=== PATIENT | female | born 1955 | race Caucasian/White ===

== ENCOUNTER 2022-12-24 17:34 | Emergency (ER) | payer MEDICARE, BC ==
[~2022-12-24] VITALS: Ht 172.7 cm; Wt 57.7 kg
[2022-12-24 18:46] VITALS: BP 149/97
[2022-12-24] MEDS ORDERED: normal saline 1000ML IV soln IVB ONE (19:10)
[2022-12-24 19:15] LABS: BASOPHILS % (AUTO) 0.3 % (0-1); EOSINOPHILS % (AUTO) 0.1 % (0-6); HEMATOCRIT 41.1 % (35.0-45.0); HEMOGLOBIN 13.7 g/dl (12.0-16.0); LYMPHOCYTES # (AUTO) 0.7 X10'3 (1.1-4.8); LYMPHOCYTES % (AUTO) 9.3 % (21-51); MEAN CORPUSCULAR HEMOGLOBIN 31.4 PG (27.0-31.0); MEAN CORPUSCULAR HGB CONC 33.3 g/dL (33.0-36.5); MEAN CORPUSCULAR VOLUME 94.3 FL (78-98); MEAN PLATELET VOLUME 7.9 FL (7.4-10.4); MONOCYTES # (AUTO) 0.3 X10'3 (0-0.9); MONOCYTES % (AUTO) 4.3 % (2-12); NEUTROPHILS # (AUTO) 6.2 X10'3 (1.8-7.7); PLATELET COUNT 229 X10'3 (140-440); RED BLOOD COUNT 4.36 X10'6 (4.20-5.60); RED CELL DISTRIBUTION WIDTH 13.9 % (11.5-14.5); WHITE BLOOD COUNT 7.2 X10'3 (4.5-11.0)
[2022-12-24] MEDS ORDERED: metoclopramide 5 mg/ml inj IV ONE (19:20)
[2022-12-24] MEDS ORDERED: diphenhydrAMINE 50 mg/ml inj IV ONE (19:20)
[2022-12-24 19:27] LABS: ALANINE AMINOTRANSFERASE 47 U/L (12-78); ALBUMIN 3.1 G/DL (3.4-5.0); ALKALINE PHOSPHATASE 114 IU/L (46-116); ANION GAP 11 (8-16); ASPARTATE AMINO TRANSFERASE 23 U/L (10-37); BILIRUBIN,TOTAL 0.2 MG/DL (0.1-1.0); BLOOD UREA NITROGEN 21 MG/DL (7-18); BUN/CREATININE RATIO 29.6 (10.0-20.0); CALCIUM 8.3 MG/DL (8.5-10.1); CHLORIDE 108 MMOL/L (99-107); CREATININE 0.71 MG/DL (0.40-0.90); GLUCOSE 110 MG/DL (70-104); POTASSIUM 3.8 MMOL/L (3.5-5.1); SODIUM 144 MMOL/L (135-145); TOTAL CARBON DIOXIDE 25.3 MMOL/L (24-32); TOTAL PROTEIN 6.3 G/DL (6.4-8.2); eGFR 82 ML/MIN
--- NOTE | 2022-12-24 20:15 | NUR ---
iv dc'd pt being discharged dressing applied
== END 2022-12-24 20:17 | disposition home or self-care (01) ==
LOC: ER 17:36
DX: R00.2 Palpitations (principal); E86.0 Dehydration
CPT/HCPCS: 36415; 80053; 83880; 84484; 85025; 93005; 99284; J7030

== ENCOUNTER 2023-10-18 08:06 | Observation (INO) | payer MEDICARE, BC ==
[2023-10-12 10:41] LABS: BASOPHILS % (AUTO) 0.7 % (0-1); LYMPHOCYTES # (AUTO) 1.1 X10'3 (1.1-4.8); LYMPHOCYTES % (AUTO) 25.2 % (21-51); MEAN CORPUSCULAR HEMOGLOBIN 31.7 PG (27.0-31.0); MEAN CORPUSCULAR HGB CONC 33.2 g/dL (33.0-36.5); MEAN CORPUSCULAR VOLUME 95.5 FL (78-98); MEAN PLATELET VOLUME 9.4 FL (7.4-10.4); MONOCYTES # (AUTO) 0.4 X10'3 (0-0.9); NEUTROPHILS # (AUTO) 2.9 X10'3 (1.8-7.7); NEUTROPHILS % (AUTO) 64.1 % (42-75); PRE OP HEMATOCRIT 46.9 % (35.0-45.0); PRE OP HEMOGLOBIN 15.6 g/dL (12.0-16.0); PRE OP PLATELET COUNT 177 X10'3 (140-440); PRE OP WHITE BLOOD COUNT 4.5 10'3 (4.8-10.8); RED BLOOD COUNT 4.92 X10'6 (4.20-5.60); RED CELL DISTRIBUTION WIDTH 13.7 % (11.5-14.5)
[2023-10-12 10:52] LABS: PRE OP INR 0.9 INR; PRE OP PROTIME 10.2 SECONDS (9.0-12.0)
[2023-10-12 11:24] LABS: ALBUMIN 4.2 G/DL (3.4-5.0); ALBUMIN/GLOBULIN RATIO 1.2 (1.1-1.5); ALKALINE PHOSPHATASE 69 IU/L (46-116); BLOOD UREA NITROGEN 16 MG/DL (7-18); BUN/CREATININE RATIO 16.7 (10.0-20.0); CALCIUM 9.5 MG/DL (8.5-10.1); CHLORIDE 106 MMOL/L (99-107); CREATININE 0.96 MG/DL (0.40-0.90); PRE OP ALT 41 U/L (30-65); PRE OP ANION GAP 8 (8-16); PRE OP AST 26 U/L (10-37); PRE OP BILIRUB, TOTAL 0.5 MG/DL (0.0-1.0); PRE OP GLUCOSE 91 MG/DL (70-104); PRE OP POTASSIUM 4.2 MMOL/L (3.4-5.1); PRE OP SODIUM 145 MMOL/L (135-145); TOTAL CARBON DIOXIDE 30.6 MMOL/L (24-32); TOTAL PROTEIN 7.7 G/DL (6.4-8.2); eGFR 58 ML/MIN
[~2023-10-18] VITALS: Ht 170.2 cm; Wt 57.2 kg
[2023-10-18] VITALS (31 sets, daily range): BP systolic 87–129; BP diastolic 47–61; PULSE 58–106; RESP 10–18; TEMP 97.2–98.2; O2SAT 94–100
[2023-10-18] MEDS: cefazolin 2gm/D5W 100mL 100 ML IV ONE (05:30)
[2023-10-18] MEDS: ringers solution, lacted 1,000 ML IV SCH ×3 (05:30→12:30)
[2023-10-18] MEDS: famotidine 20mg tablet PO ONE (05:30)
[2023-10-18] MEDS ORDERED: BUPIVAcaine/PF 2.5 mg/ml (0.25%) 30ml vial ONE (09:49)
[2023-10-18] MEDS ORDERED: BUPIVACAINE liposomal/PF 13.3 MG/ML vial IM ONE (09:49)
[2023-10-18] MEDS ORDERED: PHENYLephrine 10mg/ml 5ml injection IV ONE (09:51)
[2023-10-18] MEDS ORDERED: ePHEDrine 50MG/ML INJ. ONE (09:51)
[2023-10-18] MEDS ORDERED: sevoflurane 250ml liquid IH ONE (09:51)
[2023-10-18] MEDS ORDERED: fentaNYL/PF 50MCG/1 ML 2ML syringe ONE (09:58)
[2023-10-18] MEDS ORDERED: midazolam 1 mg/ML 2ml injection ONE (09:58)
[2023-10-18] MEDS ORDERED: LIDOcaine 2% (20mg/ml) 5ml vial ONE (10:04)
[2023-10-18] MEDS ORDERED: ondansetron/PF 4mg/2ml inj ONE (10:04)
[2023-10-18] MEDS ORDERED: propofol inj 20 ML IV ONE (10:04)
[2023-10-18] MEDS ORDERED: acetaminophen 1,000mg/100ml IV 100 ML IV ONE (10:04)
[2023-10-18] MEDS ORDERED: labetalol 20mg/4ml (5mg/ml) syringe IV PRN (10:45)
[2023-10-18] MEDS ORDERED: morphine 4 MG/ML inj SYRINge IV PRN (10:45)
[2023-10-18] MEDS ORDERED: hydrALAZINE 20mg/ml inj. IV PRN (10:45)
[2023-10-18] MEDS ORDERED: ondansetron/PF 4mg/2ml inj IV PRN ×2 (10:45→12:30)
[2023-10-18] MEDS ORDERED: midazolam 1 mg/ML 2ml injection IV PRN (10:45)
[2023-10-18] MEDS ORDERED: dexmedetomidine 200mcg/2ml inj. IV ONE (10:50)
[2023-10-18] MEDS: methylene blue (5mg/ml) 50mg/10ml ampul IV ONE (11:53)
[2023-10-18] MEDS ORDERED: bisacodyl 10mg suppository rectal RC PRN (12:30)
[2023-10-18] MEDS: fentaNYL/PF 50MCG/1 ML 2ML syringe IV PRN ×2 (12:39→12:50)
[2023-10-18] MEDS: morphine 2 MG/ML inj. syringe IV PRN (13:43)
[2023-10-18] MEDS: acetaminophen w/codeine (30MG) #3 tablet PO PRN (16:33)
[2023-10-18] MEDS: ceFAZolin 1GM/D5W- ADD-VANTAGE 50 ML IV SCH (17:24)
[2023-10-19 06:40] VITALS: BP 99/49; PULSE 69; RESP 14; TEMP 97.3; O2SAT 97
[2023-10-19 08:00] VITALS: RESP 14; O2SAT 97
[2023-10-19 11:26] VITALS: RESP 18
== END 2023-10-19 12:15 | disposition home or self-care (01) ==
LOC: PAS 08:06 → PAS IN 12:35 → ORTHO 4S 14:50
PROVIDERS: ADMIT Surgery; ATTEND Surgery
DX: C50.912 Malignant neoplasm of unspecified site of left female breast (principal); Z79.899 Other long term (current) drug therapy
CPT/HCPCS: 19303; 36415; 38525; 38792; 80053; 82948; 85025; 85610; 85730; 86885; 86900; 86901; 93005; 96365; 96366; 96375; C9290; G0378; J0131; J0690; J2250; J2270; J2370; J2405; J2704; J3010; J3490; J7120; Q9968; 88307; 88342; A4215; A4615; A4618; A6253; A6449; A7000; C9250